=== PATIENT | female | born 1945 | race Caucasian/White ===

== ENCOUNTER 2019-01-14 23:24 | Emergency (ER) | payer MEDICARE ==
[~2019-01-14] VITALS: Ht 167.6 cm; Wt 53.6 kg
[~2019-01-14 23:24] MED LIST: EVISTA60 MG
[2019-01-15 00:01] LABS: URINE BILIRUBIN - DIPSTICK NEGATIVE (NEGATIVE); URINE BLOOD DIPSTICK LARGE (NEGATIVE); URINE COLOR YELLOW; URINE GLUCOSE - DIPSTICK NEGATIVE (NEGATIVE); URINE KETONE NEGATIVE (NEGATIVE); URINE NITRITE - DIPSTICK NEGATIVE (Negative); URINE PROTEIN - DIPSTICK 30 mg/dL (NEG-TRACE); URINE SPECIFIC GRAVITY <=1.005; URINE UROBILINOGEN - DIPSTICK 0.2 E.U./dL (0.2)
[2019-01-15 00:10] LABS: URINE LEUK ESTERASE SMALL (NEGATIVE)
[2019-01-15 00:14] LABS: URINE BACTERIA RARE hpf; URINE SQUAMOUS EPITHELIAL CELL RARE EPI/hpf (0-FEW); URINE WBC >100 WBC/hpf (0-5)
[2019-01-15] MEDS ORDERED: CIPROFLOXACN500 MG PO (00:24)
[2019-01-15] MEDS ORDERED: PYRIDIUM200 MG PO (00:24)
[2019-01-15 00:35] VITALS: BP 153/80
== END 2019-01-15 00:38 | disposition home or self-care (01) ==
LOC: ED 23:24
PROVIDERS: Emergency Medicine
DX: N39.0 Urinary tract infection, site not specified (principal); B96.20 Unspecified Escherichia coli [E. coli] as the cause of diseases classified elsewhere